=== PATIENT | female | born 1965 | race Caucasian/White ===

== ENCOUNTER 2022-06-05 12:06 | Emergency (ER) | payer MEDICAID ==
[~2022-06-05] VITALS: Ht 165.1 cm; Wt 74.8 kg
[2022-06-05 12:10] VITALS: BP_SYST 127
[2022-06-05] MEDS ORDERED: IBUP-1969 PO (14:52)
[2022-06-05 15:00] VITALS: BP_SYST 127
== END 2022-06-05 15:00 | disposition home or self-care (01) ==
LOC: SED 12:06
DX: S69.91XA Unspecified injury of right wrist, hand and finger(s), initial encounter (principal); Z79.899 Other long term (current) drug therapy; W01.0XXA Fall on same level from slipping, tripping and stumbling without subsequent striking against object, initial encounter; Y93.89 Activity, other specified; Y92.89 Other specified places as the place of occurrence of the external cause; Y99.8 Other external cause status
CPT/HCPCS: 99284